=== PATIENT | male | born 1995 ===

== ENCOUNTER → 2021-06-22 | Outpatient (CLI) | payer OTHER ==
[2021-06-22 19:40] LABS: IRON,SERUM 153 ug/dL (35-150)
[2021-06-22 19:50] LABS: TOTAL IRON BINDING CAPACITY 295 ug/dL (261-462)
== END ==
LOC: ZCOL.LAB 18:58
PROVIDERS: Dietitian, Registered
DX: E55.9 Vitamin D deficiency, unspecified (principal); R53.0 Neoplastic (malignant) related fatigue